=== PATIENT | female | born 1980 | race African-American/Black ===

== ENCOUNTER 2017-10-31 17:08 | Emergency (ER) | payer MEDICAID ==
[~2017-10-31] VITALS: Ht 162.6 cm; Wt 65.8 kg
[~2017-10-31 17:08] MED LIST: ALBUTEROL SULF8.5 GM INH; CIPROFLOXACIN500 M2 ORAL; NKM; ONDANSETRON ODT4 MG ORAL; ZOFRAN4 MG ORAL
[2017-10-31 17:21] VITALS: BP 116/77
--- NOTE | 2017-10-31 17:42 | Emergency Room Report ---
History of Present Illness General Chief Complaint: Upper Extremity Injury Source: Patient Present Illness HPI 29-year-old female presents to ER for status post fall on right arm. Patient states she was walking and tripped onto the curb. Patient states she landed onto her right forearm. Denies FOOSH. Patient complains of pain in right elbow and shoulder. Patient states he feels numbness and tingling in her third and fourth digits of her right hand. Patient denies use medications for relief of pain. Patient denies dizziness, syncope, LOC, Allergies: Coded Allergies: IBUPROFEN (Verified Allergy, Unknown, 09/15/15) Patient History Past Medical History: see triage record Pertinent Family History: none Last Menstrual Period: 10/31/2017 Now: No Immunizations: UTD Reviewed Nursing Documentation: PMH: Agreed, PSxH: Agreed Nursing Documentation-PMH Past Medical History: No Stated History Review of Systems All Other Systems: negative except mentioned in HPI Physical Exam Vital Signs Date Time Temp Pulse Resp B/P (MAP) Pulse Ox O2 Delivery O2 Flow Rate FiO2 10/31/17 17:14 97.7 79 16 116/77 100 Room Air Sp02 EP Interpretation: reviewed, normal General Appearance: alert, GCS 15, non-toxic, mild distress Head: normocephalic, atraumatic Eyes: bilateral eye normal inspection, bilateral eye PERRL ENT: hearing grossly normal, normal pharynx, no angioedema, normal voice, uvula midline Neck: full range of motion, supple/symm/no masses Respiratory: chest non-tender, lungs clear, normal breath sounds, no respiratory distress, speaking full sentences Cardiovascular #1: regular rate, rhythm, no edema Cardiovascular #2: 2+ radial (R), 2+ radial (L) Musculoskeletal: back normal, digits/nails normal, gait/station normal, decreased range of motion - right shoulder and right elbow secondary to pain, pain with full extension of elbow, swelling - mild swelling noted over right elbow, other - NVI, no snuffbox tenderness, tender - TTP over posterior right elbow. Neurologic: alert, oriented x3, responsive, motor strength/tone normal, sensory intact, speech normal Psychiatric: mood/affect normal Skin: normal color, no rash, warm/dry, well hydrated, other - no ecchymosis, no bleeding, no abrasions Lymphatic: no adenopathy Medical Decision Making PA Attestation Dr. Arce is my supervising Physician whom patient management has been discussed with. Diagnostic Impression: Primary Impression: Injury of right upper extremity ER Course Pt. presents to the ED c/o right arm pain. Ddx considered but are not limited to fracture, sprain, strain, contusion, cellulitis, DVT. Vital signs: are WNL, pt. is afebrile ORDERS: An X-ray of the right elbow was ordered, results show no acute fracture, per the preliminary report. An X-ray of the right shoulder was ordered, results show no acute fracture, per the preliminary report. ED INTERVENTIONS: Acetaminophen provided in ED. Sling cast was applied to right arm in ER. The affected arm was checked afterwards by me showing good alignment and support with distal neurovascular functioning intact. DISCHARGE: -Rx provided for Tylenol for pain symptoms. At this time pt. is stable for d/c to home. Will provide printed patient care instructions, and any necessary prescriptions. Patient instructed to follow with primary care provider in 3 - 5 days and to request further orthopedic follow-up. Care plan and follow up instructions have been discussed with the patient prior to discharge. Take medications as directed. Patient questions asked and answered. ER precautions given, patient instructed to return to ER immediately for any new or worsening of symptoms. Other X-Ray Diagnostic Results Other X-Ray Diagnostic Results #1: X-Ray ordered: Right elbow # of Views/Limited Vs Complete: 3 View Indication: Pain EP Interpretation: Yes PA Xray: Interpretation reviewed, by supervising MD, and agrees with findings. Interpretation: no dislocation, no soft tissue swelling, no fractures Impression: No acute disease PRESTON ScribAlan Sevilla PA-C Other X-Ray Diagnostic Results #2: X-Ray ordered: Right shoulder # of Views/Limited Vs Complete: 2 View Indication: Pain EP Interpretation: Yes PA Xray: Interpretation reviewed, by supervising MD, and agrees with findings. Interpretation: no dislocation, no soft tissue swelling, no fractures Impression: No acute disease PRESTON ScribAlan Sevilla PA-C Last Vital Signs Date Time Temp Pulse Resp B/P (MAP) Pulse Ox O2 Delivery O2 Flow Rate FiO2 10/31/17 17:21 97.7 70 16 116/77 100 Room Air Disposition: HOME, SELF-CARE Condition: Stable Scripts Acetaminophen* (TYLENOL EXTRA STRENGTH*) 500 Mg Tablet 500 MG ORAL Q8H Y for Prn Headache/Temp > 101, #30 TAB 0 Refills Prov: Tesfaye Sevilla 10/31/17 Patient Instructions: CONTUSION, Upper Extremity Additional Instructions: Followup with primary care provider in 3 -5 days and discuss further treatment and possible referral to ortho at that time. Wear sling to protect arm. Move arm as tolerated to increase range of motion and prevent stiffness. Take medications as directed. Patient questions asked and answered. ER precautions given, patient instructed to return to ER immediately for any new or worsening of symptoms. Tesfaye Sevilla Oct 31, 2017 17:42
[2017-10-31] MEDS ORDERED: TYLENOL EXTRA500 MG ORAL (18:09)
[2017-10-31 18:14] VITALS: BP 116/77
--- NOTE | 2017-11-01 11:38 | Diagnostic Imaging Report ---
Indication: Shoulder pain status post fall Technique: 2 views of the right shoulder Comparison: Findings: No acute fractures. No dislocations. The joint spaces are preserved Impression: Negative
--- NOTE | 2017-11-01 12:12 | Diagnostic Imaging Report ---
Indications:Pain, status post fall Technique: Three or 4 views of the ] elbow Comparison: None Findings: There is elevation of the anterior and posterior fat pads, consistent with joint effusion. No definite fracture demonstrated. No dislocation. Joint spaces are preserved. Impression: Positive joint effusion, raising concern for occult fracture. Recommend follow-up imaging at 7-10 days. Findings discussed by phone with Dr. Arce at the time of interpretation
== END 2017-10-31 18:19 | disposition home or self-care (01) ==
LOC: EMR 17:40
DX: S59.901A Unspecified injury of right elbow, initial encounter (principal); S49.91XA Unspecified injury of right shoulder and upper arm, initial encounter; W01.0XXA Fall on same level from slipping, tripping and stumbling without subsequent striking against object, initial encounter; Y93.01 Activity, walking, marching and hiking; Y92.480 Sidewalk as the place of occurrence of the external cause; Z88.6 Allergy status to analgesic agent
CPT/HCPCS: 99284

== ENCOUNTER 2018-07-24 14:56 | Emergency (ER) | payer MEDICAID ==
[~2018-07-24] VITALS: Ht 160 cm; Wt 7.3 kg
[~2018-07-24 14:56] MED LIST changes: +TYLENOL EXTRA500 MG ORAL
[2018-07-24] MEDS ORDERED: Dextrose 5%/Lactated Ringer's 1,000 ML IV SCH (15:45)
[2018-07-24] MEDS ORDERED: Haloperidol Lactate 5 MG in D5W 55 ML IVPB ONE (15:45)
[2018-07-24] MEDS ORDERED: Lidocaine 2% Visc 15ml soln ORAL ONE (15:45)
[2018-07-24 15:51] LABS: APPEARANCE,URINE CLEAR; BILIRUBIN, URINE NEGATIVE (NEGATIVE); GLUCOSE, URINE (UA) NEGATIVE (NEGATIVE); KETONES,URINE 2+ (NEGATIVE); LEUKOCYTE ESTERASE ,URINE 1+ (NEGATIVE); NITRITE,URINE NEGATIVE (NEGATIVE); PH,URINE 6 (4.5-8.0); PROTEIN,URINE 1+ (NEGATIVE); UROBILINOGEN,URINE NORMAL MG/DL (0.0-1.0)
--- NOTE | 2018-07-24 16:04 | Emergency Room Report ---
History of Present Illness General Chief Complaint: Vomiting Source: Patient Present Illness HPI Patient is a 38-year-old female who presented after increased abdominal discomfort nausea and vomiting. The patient reports having increased sore throat. She reports having the minimal cough. She reports having generalized abdominal pain. She reports having pain to her throat predominate the left side. She denied any fever. Allergies: Coded Allergies: IBUPROFEN (Verified Allergy, Unknown, 09/15/15) Patient History Last Menstrual Period: 07/2018 Reviewed Nursing Documentation: PMH: Agreed; PSxH: Agreed Nursing Documentation-PMH Past Medical History: No Stated History Review of Systems All Other Systems: negative except mentioned in HPI Physical Exam Vital Signs Date Time Temp Pulse Resp B/P (MAP) Pulse Ox O2 Delivery O2 Flow Rate FiO2 07/24/18 15:23 98.1 85 16 127/74 95 Room Air 98.1 Sp02 EP Interpretation: reviewed, normal General Appearance: normal inspection, well appearing, no apparent distress, alert, GCS 15 Head: atraumatic ENT: normal ENT inspection, hearing grossly normal, normal voice Neck: normal inspection, full range of motion, supple, no bony tend Respiratory: normal inspection, lungs clear, normal breath sounds, no respiratory distress, no retraction, no wheezing Cardiovascular #1: regular rate, rhythm, no edema Gastrointestinal: normal inspection, normal bowel sounds, non tender, soft, no guarding, no hernia Genitourinary: no CVA tenderness Musculoskeletal: normal inspection, back normal, normal range of motion Neurologic: normal inspection, alert, responsive, speech normal Psychiatric: normal inspection, judgement/insight normal, mood/affect normal Skin: normal inspection, normal color, no rash Medical Decision Making ER Course Patient presented for abdominal pain. Differential diagnoses included ischemic bowel, appendicitis, perforated viscus, abdominal aortic aneurysm, inferior myocardial infarction, viral gastroenteritis Last Vital Signs Date Time Temp Pulse Resp B/P (MAP) Pulse Ox O2 Delivery O2 Flow Rate FiO2 07/24/18 15:23 98.1 85 16 127/74 95 Room Air 98.1 Carlos James MD Jul 24, 2018 16:04
[2018-07-24 16:06] LABS: COLOR,URINE YELLOW
[2018-07-24 16:08] VITALS: BP 127/74
--- NOTE | 2018-07-24 16:22 | Diagnostic Imaging Report ---
Indication: Dyspnea Comparison: 08/10/2016 A single view chest radiograph was obtained. Findings: Cardiomediastinal appearance is within normal limits for age. The lungs are clear. Pulmonary vascularity is appropriate. The diaphragmatic contour is smooth and costophrenic angles are sharp. No pleural effusions are identified. The bones are unremarkable. Impression: No acute findings
[2018-07-24 16:25] LABS: HEMATOCRIT 40.1 % (37.0-47.0); HEMOGLOBIN 13.4 G/DL (12.0-16.0); MEAN CORPUSCULAR VOLUME 86 FL (80-99); PLATELET COUNT 289 K/UL (150-450); RED BLOOD COUNT 4.68 M/UL (4.20-5.40); RED CELL DISTRIBUTION WIDTH 11.2 % (11.6-14.8); WHITE BLOOD COUNT 7.2 K/UL (4.8-10.8)
[2018-07-24 16:39] LABS: ALANINE AMINOTRANSFERASE 10 U/L (12-78); ALBUMIN 3.8 G/DL (3.4-5.0); ALBUMIN/GLOBULIN RATIO 0.8 (1.0-2.7); ALKALINE PHOSPHATASE 70 U/L (46-116); ANION GAP 12 mmol/L (5-15); ASPARTATE AMINO TRANSFERASE 15 U/L (15-37); BILIRUBIN,TOTAL 0.6 MG/DL (0.2-1.0); BLOOD UREA NITROGEN 16 mg/dL (7-18); CARBON DIOXIDE 23 MMOL/L (21-32); CHLORIDE 105 MMOL/L (98-107); CREATININE 0.9 MG/DL (0.55-1.30); POTASSIUM 3.6 MMOL/L (3.5-5.1); SODIUM 140 MMOL/L (136-145)
[2018-07-24 17:39] VITALS: BP 125/81
[2018-07-24] MEDS ORDERED: Isovue-300 100ml vial INJ PRN (17:45)
[2018-07-24] MEDS ORDERED: ZOFRAN4 MG ORAL (20:01)
[2018-07-24] MEDS ORDERED: DICYCLOMINE HCL10 MG PO (20:01)
[2018-07-24 20:06] VITALS: BP 127/84
[2018-07-24 20:07] VITALS: BP 127/84
--- NOTE | 2018-07-25 09:36 | Diagnostic Imaging Report ---
Clinical Indication: Abdominal pain Technique: No oral contrast utilized, per emergency room physician request IV administration nonionic contrast. Venous phase spiral acquisition obtained through the abdomen and pelvis. Multiplanar reconstructions were generated. Total dose length product 775.75 mGycm. CTDIvol(s) 15.91 mGy. Dose reduction achieved using automated exposure control Comparison: 02/22/2012 Findings: What is probably a normal appendix is demonstrated, best appreciated on the coronal reconstructed images.. A few small bowel loops are fluid-filled and are mildly prominent in caliber. No free or loculated intraperitoneal gas or fluid. No evidence of colonic diverticulosis or diverticulitis. The distal esophagus demonstrates a small sliding-type hiatal hernia. The remainder of the stomach is unremarkable. The duodenum is unremarkable. The liver, gallbladder, bile ducts, pancreas, adrenals, left kidney are unremarkable. Right kidney demonstrates a lower pole subcentimeter low-attenuation lesion which is too small to characterize. No retroperitoneal or mesenteric mass or adenopathy. No pelvic mass or adenopathy. Uterus and ovaries are unremarkable. The included lung bases are clear. The bones are unremarkable. When compared to prior exam, the hiatal hernia and prominent small bowel loops are a new finding. Impression: Nonspecific mildly prominent fluid-filled small bowel loops, in the appropriate clinical setting could indicate enteritis changes No acute process otherwise Small sliding-type hiatal hernia This agrees with the preliminary interpretation provided overnight by Dr. Oleary The CT scanner at [facility] is accredited by the [employer] and the scans are performed using protocols designed to limit radiation exposure to as low as reasonably achievable to attain images of sufficient resolution adequate for diagnostic evaluation.
== END 2018-07-24 20:07 | disposition home or self-care (01) ==
LOC: EMR 15:40
DX: R10.9 Unspecified abdominal pain (principal); J02.9 Acute pharyngitis, unspecified; R11.2 Nausea with vomiting, unspecified; Z88.6 Allergy status to analgesic agent
CPT/HCPCS: 36415; 71045; 74177; 80053; 80307; 81003; 81025; 85007; 85025; 96365; 96366; 96375; 99284; J1630; J2405; Q9967; S0028

== ENCOUNTER 2018-12-30 23:35 | Emergency (ER) | payer MEDICAID ==
[~2018-12-30] VITALS: Ht 160 cm; Wt 65.8 kg
[~2018-12-30 23:35] MED LIST changes: +DICYCLOMINE HCL10 MG PO
--- NOTE | 2018-12-30 23:47 | NUR ---
ED Nurse Note: PT CAME TO ED FROM HOME C/O R MIDDLE FINGER, RING FINGER, AND LITTLE FNGER PAIN DUE TO ACCIDENTLY CLOSING THE DOORS ON HER FINGERS X 2HORUS AGO. PER PT PAIN 07/19
[2018-12-30 23:48] VITALS: BP 107/69
--- NOTE | 2018-12-30 23:48 | NUR ---
ED Nurse Note: SKIN INTACT OF RIGHT FINGERS. PT SHOWS DIFFICULTY MOVING RIGHT FINGERS. NO VISIBLE BONE DISLOGEMENT
[2018-12-31] MEDS ORDERED: HYDROcodone/Acetamin 5/325 tab ORAL ONE
--- NOTE | 2018-12-31 | Emergency Room Report ---
History of Present Illness General Chief Complaint: Upper Extremity Injury Source: Patient Present Illness HPI Is a 38-year-old female who is right-hand dominant. She presents with chief complaint of right fingers pain. She got her right third and fourth finger caught in between the pain no of the garage door. He was a manual one was she pulled down and her finger got caught. Complaining of 10 out of 10 pain. Worse with movement. Better with rest. No other complaint. No other injury. Occurred just prior to arrival. Allergies: Coded Allergies: IBUPROFEN (Verified Allergy, Unknown, 09/15/15) Uncoded Allergies: POLLEN (Allergy, Unknown, 12/30/18) Patient History Past Medical History: see triage record, old chart reviewed Past Surgical History: other Pertinent Family History: none Social History: Denies: smoking Last Menstrual Period: Dec 23 2018 Now: No Immunizations: other Reviewed Nursing Documentation: PMH: Agreed; PSxH: Agreed Nursing Documentation-PMH Past Medical History: No Stated History Review of Systems Eye: Denies: eye pain, blurred vision ENT: Denies: ear pain, nose congestion, throat swelling Respiratory: Denies: cough, shortness of breath Cardiovascular: Denies: chest pain, palpitations Gastrointestinal: Denies: abdominal pain, diarrhea, nausea, vomiting Musculoskeletal: Reports: joint pain; Denies: back pain Skin: Denies: rash Neurological: Denies: headache, numbness Endocrine: Denies: increased thirst, increased urine Hematologic/Lymphatic: Denies: easy bruising All Other Systems: negative except mentioned in HPI Physical Exam Vital Signs Date Time Temp Pulse Resp B/P (MAP) Pulse Ox O2 Delivery O2 Flow Rate FiO2 12/30/18 23:41 97.9 73 20 107/69 98 Room Air Sp02 EP Interpretation: reviewed, normal General Appearance: well appearing, no apparent distress, alert Head: normocephalic, atraumatic Eyes: bilateral eye PERRL, bilateral eye EOMI ENT: hearing grossly normal, normal pharynx Neck: full range of motion, supple, no meningismus Respiratory: chest non-tender, lungs clear, normal breath sounds Cardiovascular #1: regular rate, rhythm, no murmur Gastrointestinal: normal bowel sounds, non tender, no mass, no organomegaly, no bruit, non-distended Musculoskeletal: back normal, gait/station normal, normal range of motion, other - Right hand: Her third and fourth finger over the middle phalanx has edema and tenderness. Full range of motion of the MCP, PIP, DIP joint. Psychiatric: mood/affect normal Skin: warm/dry Procedures Splinting Splinting : Consent: Verbal Location: Right fingers Pre-Made Type: metal Pre-Proc Neuro Vasc Exam: normal Post-Proc Neuro Vasc Exam: normal Patient Tolerated: Well Complications: None Medical Decision Making Diagnostic Impression: Primary Impression: Contusion, fingers Qualified Codes: S60.00XA - Contusion of unspecified finger without damage to nail, initial encounter ER Course She presents with soft tissue injury secondary to crush injury. No fracture dislocation. We'll discharge home. Other X-Ray Diagnostic Results Other X-Ray Diagnostic Results : X-Ray ordered: Finger x-rays # of Views/Limited Vs Complete: 3 View Indication: Pain EP Interpretation: Yes Interpretation: no dislocation, no soft tissue swelling, no fractures Impression: No acute disease Electronically Signed by: Yang Fowler MD Last Vital Signs Date Time Temp Pulse Resp B/P (MAP) Pulse Ox O2 Delivery O2 Flow Rate FiO2 12/30/18 23:48 97.9 73 20 107/69 98 Room Air Status: improved Disposition: HOME, SELF-CARE Condition: Stable Scripts Hydrocodone/Acetaminophen 5-325* (HYDROCODONE/ACETAMINOPHEN 5-325*) 1 Each Tablet 1 TAB ORAL Q6H PRN for For Pain, #15 TAB 0 Refills Prov: Yang Fowler MD 12/31/18 Additional Instructions: Ice pack to the area. Follow-up with your doctor in 7 days. Return if worse. Yang Fowler MD Dec 31, 2018 00:00
[2018-12-31] MEDS ORDERED: Acetaminophen 500mg (ES) tab ORAL ONE ×2 (00:01)
--- NOTE | 2018-12-31 00:02 | NUR ---
ED Nurse Note: INFORMED ERMD PT DROVE HERSELF TO ED, DAUGHTER ACCOMPANING PT CANT DRIVE. PER ERMBuffy BELL CANCELLED. WILL ADMIN TYLENOL PER VINCENTD
--- NOTE | 2018-12-31 00:24 | Diagnostic Imaging Report ---
EXAM: XR Right Finger(s), 2 or More Views CLINICAL HISTORY: TRAUMA TECHNIQUE: Frontal, lateral and oblique views of finger(s) of the right hand. COMPARISON: No relevant prior studies available. FINDINGS: Bones/joints: Unremarkable. No acute fracture. No dislocation. Soft tissues: Unremarkable. No radiopaque foreign body. A couple of subjacent small radiopaque/metallic density foreign bodies are seen along the nail of the second digit. IMPRESSION: No acute or healing fracture or malalignment.
--- NOTE | 2018-12-31 00:29 | NUR ---
ED Nurse Note: SUZAN WATERS AT BEDSIDE APPLYING FINGER SPLINT PER ERMD ORDER
[2018-12-31] MEDS ORDERED: HYDROCODON-ACE1 EA15 ORAL (00:42)
[2018-12-31 00:45] VITALS: BP 107/69
--- NOTE | 2018-12-31 00:46 | NUR ---
ER DISCHARGE NOTE: Patient is cleared to be discharged per ERMD, pt is aox4, on room air, with stable vital signs. pt was given dc and prescription instructions, pt was able to verbalize understanding, pt id band removed. pt is able to ambulate with steady gait. pt took all belongings.
== END 2018-12-31 00:45 | disposition home or self-care (01) ==
LOC: EMR 23:57
DX: S60.031A Contusion of right middle finger without damage to nail, initial encounter (principal); S60.041A Contusion of right ring finger without damage to nail, initial encounter; W23.0XXA Caught, crushed, jammed, or pinched between moving objects, initial encounter; Y92.89 Other specified places as the place of occurrence of the external cause; Z88.6 Allergy status to analgesic agent
CPT/HCPCS: 29130; 99283

== ENCOUNTER 2019-08-06 10:40 | Emergency (ER) | payer MEDICAID ==
[~2019-08-06] VITALS: Ht 160 cm; Wt 63.5 kg
[~2019-08-06 10:40] MED LIST changes: +HYDROCODON-ACE1 EA15 ORAL
--- NOTE | 2019-08-06 10:41 | NUR ---
ED Nurse Note: pt not found in waiting area.
[2019-08-06] MEDS ORDERED: NKM (10:45)
[2019-08-06 11:00] VITALS: BP 133/87
--- NOTE | 2019-08-06 11:02 | NUR ---
ED Nurse Note:pt. came with flu like symptoms no fever and lower back pain no injury
--- NOTE | 2019-08-06 11:11 | Emergency Room Report ---
History of Present Illness General Chief Complaint: Flu Like Symptoms Source: Patient Present Illness HPI Patient presents with 2 days of upper respiratory illness. She complains of sore throat, ear pain, headache muscle aches and cough. She is exposed to secondhand smoke. The cough is nonproductive. She rates the pain in her throat years and had 9/10 at this time. Throbbing aching and sharp in her throat worse when she swallows. She has no neck stiffness. She feels feverish. No documented temperature. No nausea, vomiting or diarrhea. She has occasionally heard herself wheezing. In the past she is used an albuterol inhaler but does not have one at this time. 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 Nursing Documentation: PMH: Agreed; PSxH: Agreed Nursing Documentation-PMH Past Medical History: No Stated History Review of Systems All Other Systems: negative except mentioned in HPI Physical Exam Vital Signs Date Time Temp Pulse Resp B/P (MAP) Pulse Ox O2 Delivery O2 Flow Rate FiO2 08/06/19 10:43 97.9 83 18 133/87 (102) 99 Room Air Sp02 EP Interpretation: reviewed, normal General Appearance: well appearing, no apparent distress, GCS 15 Head: normocephalic Eyes: bilateral eye normal inspection, bilateral eye PERRL ENT: no angioedema, normal voice, moist mucus membranes, pharyngeal erythema, other - Minimal erythema bilateral TMs Neck: full range of motion, no meningismus Respiratory: lungs clear, normal breath sounds Cardiovascular #1: regular rate, rhythm Cardiovascular #2: 2+ radial (R) Gastrointestinal: normal inspection Genitourinary: no CVA tenderness Musculoskeletal: gait/station normal Neurologic: alert, oriented x3, grossly normal Psychiatric: mood/affect normal Skin: normal color, no rash, warm/dry Medical Decision Making Diagnostic Impression: Primary Impression: Otitis media Qualified Codes: H66.90 - Otitis media, unspecified, unspecified ear Additional Impression: URI (upper respiratory infection) Qualified Codes: J06.9 - Acute upper respiratory infection, unspecified ER Course Patient presents with 2 days of upper respiratory symptoms. Based on exam she appears to have otitis media bilaterally. Antibiotics are indicated. In addition due to the severity of pain the patient will be treated with analgesia here. Diagnosis is clinical. Patient stable for outpatient observation and treatment. Last Vital Signs Date Time Temp Pulse Resp B/P (MAP) Pulse Ox O2 Delivery O2 Flow Rate FiO2 08/06/19 11:44 97.9 08/06/19 11:44 83 18 133/87 99 Room Air Status: improved Disposition: HOME, SELF-CARE Condition: Improved Scripts Amoxicillin* (AMOXIL*) 500 Mg Capsule 500 MG ORAL THREE TIMES A DAY, #21 CAP Prov: Sandro Gomez MD 08/06/19 Guaifenesin/Codeine Phos* (ROBITUSSIN AC*) 118 Ml Liquid 5 ML ORAL Q6H PRN for For Cough, #118 ML 0 Refills Prov: Sandro Gomez MD 08/06/19 Albuterol Sulfate* (ALBUTEROL SULFATE MDI*) 8.5 Gm Hfa.aer.ad 2 PUFF INH Q6H, #1 EA 0 Refills Prov: Sandro Gomez MD 08/06/19 Sandro Gomez MD Aug 06, 2019 11:11
[2019-08-06] MEDS ORDERED: GUAIFENESIN-CO118 M1 ORAL (11:14)
[2019-08-06] MEDS ORDERED: AMOXICILLIN500 MG ORAL (11:14)
[2019-08-06] MEDS ORDERED: ALBUTEROL SULF8.5 GM INH (11:14)
[2019-08-06] MEDS ORDERED: Tylenol #3 tab (300mg/30mg) ORAL ONE (11:15)
--- NOTE | 2019-08-06 11:30 | NUR ---
ER DISCHARGE NOTE: Patient is cleared to be discharged per ERMD, pt is aox4, on room air, with stable vital signs. pt was given dc and prescription instructions, pt was able to verbalize understanding, pt is able to ambulate with steady gait. pt took all belongings.
[2019-08-06 11:44] VITALS: BP 133/87
== END 2019-08-06 11:35 | disposition home or self-care (01) ==
LOC: EMR 11:16
DX: H66.90 Otitis media, unspecified, unspecified ear (principal); J06.9 Acute upper respiratory infection, unspecified; Z88.8 Allergy status to other drugs, medicaments and biological substances; Z91.048 Other nonmedicinal substance allergy status
CPT/HCPCS: 99282

== ENCOUNTER 2019-08-10 19:48 | Emergency (ER) | payer MEDICAID ==
[~2019-08-10] VITALS: Ht 160 cm; Wt 63.5 kg
[~2019-08-10 19:48] MED LIST changes: +AMOXICILLIN500 MG ORAL; +GUAIFENESIN-CO118 M1 ORAL
--- NOTE | 2019-08-10 20:00 | NUR ---
ED Nurse Note: Recieved pt from home, pt here with c/o needing work note for more time and chest congestion with intermittent pain, pt was seen here and on antibiotic treatment, in third day, pt denies fevers, nausea or vomiting or any other discomforts.
[2019-08-10 20:40] VITALS: BP 116/76
--- NOTE | 2019-08-10 20:40 | NUR ---
ER DISCHARGE NOTE: Patient is cleared to be discharged per ERMD, pt is aox4, on room air, with stable vital signs. pt was given dc and prescription instructions, pt was able to verbalize understanding, pt id band removed without complications. pt is able to ambulate with steady gait. pt took all belongings.
--- NOTE | 2019-08-10 21:50 | Emergency Room Report ---
History of Present Illness General Chief Complaint: Pain Source: Patient Present Illness Allergies: Coded Allergies: IBUPROFEN (Verified Allergy, Unknown, 09/15/15) Uncoded Allergies: POLLEN (Allergy, Unknown, 12/30/18) Patient History Last Menstrual Period: 08/10/19 Now: No Nursing Documentation-[facility] Past Medical History: No Stated History Physical Exam Vital Signs Date Time Temp Pulse Resp B/P (MAP) Pulse Ox O2 Delivery O2 Flow Rate FiO2 08/10/19 19:51 98.4 86 14 116/76 (89) 98 Room Air Medical Decision Making Diagnostic Impression: Primary Impression: URI (upper respiratory infection) Last Vital Signs Date Time Temp Pulse Resp B/P (MAP) Pulse Ox O2 Delivery O2 Flow Rate FiO2 08/10/19 20:40 98.4 14 116/76 98 Room Air 08/10/19 19:51 86 Status: improved Disposition: HOME, SELF-CARE Condition: Stable Referrals: NON PHYSICIAN (PCP) Enrico Dixon [facility] Departure Forms: Return to Work Return to Work Date: Aug 13, 2019 Work Restrictions: None Patient Instructions: Upper Respiratory Infection, Adult, [id number] Additional Instructions: continue your medications as directed, f/u with PMD Lisandro Leonard MD Aug 10, 2019 21:50
--- NOTE | 2019-08-13 16:04 | Emergency Room Report ---
History of Present Illness General Chief Complaint: Pain Source: Patient Present Illness HPI 39-year-old female presents ED for evaluation. Patient states she is here for throat, cough, congestion. Was seen here on 08/06. Was noted to have pharyngitis and prescribed antibiotics. States she is been compliant with the medication but states her symptom proving. Pain is dull, 7 out of 10, nonradiating. Denies fevers or chills. Cough is productive with yellowish phlegm. Vaccinations up-to-date. No other aggravating relieving factors. Denies any other signs and symptoms Allergies: Coded Allergies: IBUPROFEN (Verified Allergy, Unknown, 09/15/15) Uncoded Allergies: POLLEN (Allergy, Unknown, 12/30/18) Patient History Past Medical History: none Past Surgical History: none Pertinent Family History: none Social History: Denies: smoking, alcohol use, drug use Last Menstrual Period: 08/10/19 Now: No Immunizations: UTD Reviewed Nursing Documentation: PMH: Agreed; PSxH: Agreed Nursing Documentation-PMH Past Medical History: No Stated History Review of Systems All Other Systems: negative except mentioned in HPI Physical Exam Vital Signs Date Time Temp Pulse Resp B/P (MAP) Pulse Ox O2 Delivery O2 Flow Rate FiO2 08/10/19 19:51 98.4 86 14 116/76 (89) 98 Room Air Sp02 EP Interpretation: reviewed, normal General Appearance: no apparent distress, alert, GCS 15, non-toxic Head: normocephalic, atraumatic Eyes: bilateral eye normal inspection, bilateral eye PERRL ENT: hearing grossly normal, normal pharynx, no angioedema, normal voice Neck: full range of motion, supple/symm/no masses Respiratory: chest non-tender, lungs clear, normal breath sounds, speaking full sentences Cardiovascular #1: regular rate, rhythm, no edema Cardiovascular #2: 2+ carotid (R), 2+ carotid (L), 2+ radial (R), 2+ radial (L) , 2+ dorsalis pedis (R), 2+ dorsalis pedis (L) Gastrointestinal: normal bowel sounds, non tender, soft, non-distended, no guarding, no rebound Rectal: deferred Genitourinary: normal inspection, no CVA tenderness Musculoskeletal: back normal, gait/station normal, normal range of motion, non- tender Neurologic: alert, oriented x3, responsive, motor strength/tone normal, sensory intact, speech normal Psychiatric: judgement/insight normal, memory normal, mood/affect normal, no suicidal/homicidal ideation Reflexes: 3+ bicep (R), 3+ bicep (L), 3+ tricep (R), 3+ tricep (L), 3+ knee (R) , 3+ knee (L) Lymphatic: no adenopathy Medical Decision Making Diagnostic Impression: Primary Impression: URI (upper respiratory infection) Qualified Codes: J06.9 - Acute upper respiratory infection, unspecified ER Course Hospital Course 39 yo F presents to ED c/o cough, sore throat. currently on antibiotics. Differential diagnoses include: URI, pharyngitis, otitis media, asthma Clinical course Patient placed on stretcher. After initial history, physical exam reveals a female in no acute distress. Bilateral TM unremarkable. No pharyngeal erythema. No tonsillar exudates. No lymphadenopathy. lungs clear. abdomen soft. Discussed findings with the patient. I explained that her buttocks take more than 3 days to start showing effect. I explained the urgency to compliance of the antibiotics and to complete the prescription as directed. we'll provide referrals Diagnosis - URI Stable and discharged home. Instructed to followup with PMD. Return to ED if symptoms recur or worsen Last Vital Signs Date Time Temp Pulse Resp B/P (MAP) Pulse Ox O2 Delivery O2 Flow Rate FiO2 08/10/19 20:40 98.4 14 116/76 98 Room Air 08/10/19 19:51 86 Status: improved Disposition: HOME, SELF-CARE Condition: Stable Referrals: NON PHYSICIAN (PCP) Enrico Dixon [facility] Departure Forms: Return to Work Return to Work Date: Aug 13, 2019 Work Restrictions: None Patient Instructions: Upper Respiratory Infection, Adult, [id number] Additional Instructions: continue your medications as directed, f/u with PMD Lisandro Leonard MD Aug 13, 2019 16:04
== END 2019-08-10 20:40 | disposition home or self-care (01) ==
LOC: EMR 20:21
DX: J06.9 Acute upper respiratory infection, unspecified (principal)
CPT/HCPCS: 99281

== ENCOUNTER 2020-04-09 18:56 | Emergency (ER) | payer MEDICAID ==
[~2020-04-09] VITALS: Ht 162.6 cm; Wt 77.1 kg
[2020-04-09 19:10] VITALS: BP 123/74
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
--- NOTE | 2020-04-09 19:30 | NUR ---
ED Nurse Note: Pt is actively vomiting in ED. ERPA aware.
[2020-04-09] MEDS ORDERED: Promethazine Plain 6.25mg/5ml ORAL PRN (20:00)
[2020-04-09] MEDS ORDERED: Promethazine 25mg tab ORAL ONE (20:03)
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
--- NOTE | 2020-04-09 20:45 | NUR ---
ED Nurse Note: Pt states she is feeling better, has not had episode of vomiting since medication was given.
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
--- NOTE | 2020-04-09 21:00 | NUR ---
ED Nurse Note: machines technician applied splint and instructed pt how to use crutches.
[2020-04-09 21:08] LABS: BASOPHILS % (AUTO) 2.1 % (0.0-2.0); EOSINOPHILS % (AUTO) 0.1 % (0.0-3.0); HEMOGLOBIN 13.1 G/DL (12.0-16.0); LYMPHOCYTES % (AUTO) 11.6 % (20.0-45.0); MEAN CORPUSCULAR VOLUME 88 FL (80-99); MONOCYTES % (AUTO) 5.9 % (1.0-10.0); NEUTROPHILS % (AUTO) 80.3 % (45.0-75.0); PLATELET COUNT 303 K/UL (150-450); RED BLOOD COUNT 4.67 M/UL (4.20-5.40); RED CELL DISTRIBUTION WIDTH 13.2 % (11.6-14.8); WHITE BLOOD COUNT 11.3 K/UL (4.8-10.8)
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
[2020-04-09] MEDS ORDERED: TYLENOL EXTRA500 MG ORAL (21:37)
[2020-04-09] MEDS ORDERED: ACETAMINOPHEN-1 EAC1 ORAL (21:37)
[2020-04-09] MEDS ORDERED: ROBAXIN-500MG ORAL (21:37)
[2020-04-09] MEDS ORDERED: PHENERGAN25 M1 ORAL (21:37)
[2020-04-09 21:55] VITALS: BP 118/85
--- NOTE | 2020-04-09 21:55 | NUR ---
ER DISCHARGE NOTE: Patient is cleared to be discharged per ERMD, pt is aox4, on room air, with stable vital signs. pt was given dc and prescription instructions, pt was able to verbalize understanding, pt id band and iv site removed without complications. pt is able to ambulate with steady gait. pt took all belongings.
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
--- NOTE | 2020-04-10 12:49 | Diagnostic Imaging Report ---
Indication: Pain, trauma Technique: 3 views of the right ankle Comparison: none Findings: There is a fracture of the fourth metatarsal base, also reported on separate foot radiograph. The other metatarsal fractures reported on that exam are not included in the imaging volume. No ankle fracture demonstrated. No dislocations. The joint spaces are preserved Impression: No acute ankle fracture Metatarsal fracture-please see separate foot radiograph report
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
== END 2020-04-09 21:55 | disposition home or self-care (01) ==
LOC: EMR 20:10
DX: S92.514A Nondisplaced fracture of proximal phalanx of right lesser toe(s), initial encounter for closed fracture (principal); V43.52XA Car driver injured in collision with other type car in traffic accident, initial encounter; Y92.410 Unspecified street and highway as the place of occurrence of the external cause; F12.90 Cannabis use, unspecified, uncomplicated; Z88.6 Allergy status to analgesic agent; R11.2 Nausea with vomiting, unspecified; S93.401A Sprain of unspecified ligament of right ankle, initial encounter
CPT/HCPCS: 29515; 36415; 70450; 72125; 73610; 73630; 81025; 85025; 96360; 99284; J7030; J2405

== ENCOUNTER 2020-09-09 17:19 | Emergency (ER) | payer MEDICAID ==
[~2020-09-09] VITALS: Ht 160 cm; Wt 63.5 kg
[~2020-09-09 17:19] MED LIST changes: +ACETAMINOPHEN-1 EAC1 ORAL; +PHENERGAN25 M1 ORAL; +ROBAXIN-500MG ORAL
--- NOTE | 2020-09-09 17:53 | Emergency Room Report ---
History of Present Illness General Chief Complaint: Pain Source: Patient Present Illness HPI Disclaimer: Please note that this report is being documented using DRAGON technology. This can lead to erroneous entry secondary to incorrect interpretation by the dictating instrument. HPI: 40-year-old female presents for evaluation of multiple complaints. She is complaining of 3 days chest discomfort, shortness of breath, abdominal discomfort, headache. Symptoms have been constant. She reports a dull generalized headache without changes in vision, no eye pain, denies fever or chills. Denies nasal congestion, sore throat or sick contacts. She reports that she feels her chest is tight like she usually has with asthma. Has been using her albuterol inhaler. Denies cough. Also reports left lower quadrant abdominal pain of 3 days duration. Has a history ovarian cyst that was surgically removed. Does not follow-up with [facility] anymore. Denies vaginal bleeding, vaginal discharge, flank pain, nausea, vomiting, diarrhea, dysuria or hematuria. Reports regular marijuana use. Denies tobacco use. PMH: Denies PSH: Ovarian cyst excision Allergies: Ibuprofen Social Hx: THC use Allergies: Coded Allergies: IBUPROFEN (Verified Allergy, Unknown, 09/15/15) Uncoded Allergies: POLLEN (Allergy, Unknown, 12/30/18) COVID-19 Screening Contact w/high risk pt: No Recent Travel to affected area: No Experienced COVID-19 symptoms?: No Nursing Documentation-PMH Hx Asthma: Yes Review of Systems All Other Systems: negative except mentioned in HPI Physical Exam General: Awake and alert, no acute distress HEENT: NC/AT. EOMI. Cardiovascular: RRR. S1 and S2 normal. No murmur appreciated Resp: Normal work of breathing. No cough, wheezing or crackles appreciated Abdomen: Abdomen is soft, nondistended. Obese abdomen. No peritoneal signs. No guarding, no masses. Mild tenderness in the left lower quadrant. Skin: Intact. No abrasions, laceration or rash over the exposed skin MSK: Normal tone and bulk. Moving all extremities. No obvious deformity. Neuro: Awake and alert. Mentating appropriately. Medical Decision Making Diagnostic Impression: Primary Impression: Chest pain ER Course 40-year-old female history of asthma presents for evaluation of chest discomfo rt, headache and abdominal discomfort. Differential includes is not limited to viral syndrome, pneumonia, asthma exacerbation, bronchitis, generalized headache, ACS, arrhythmia, electrolyte abnormality, ovarian cyst, ectopic , UTI among others. EKG is nonischemic shows normal sinus rhythm without abnormalities otherwise. Chest x-ray unremarkable. No infiltrates, no effusions, no pneumothorax. Labs have returned within normal limits including a negative troponin. Patient is breathing comfortably saturating 100% on room air and I appreciate no wheezing or tightness in her chest. Do not believe steroids are indicated the patient has Ventolin at home. Will treat symptomatically for what may be a early viral syndrome. She is getting tested for COVID-19 tomorrow through her physical therapist. Recommended quarantine precautions and follow- up with PMD. She understands and agrees with this treatment plan EKG Diagnostic Results Troponin ordered: Yes When was troponin ordered?: Sep 09, 2020 EKG Time: 17:43 Rate: normal Rhythm: NSR ST Segments: no acute changes Other Impression Sinus rhythm, normal axis, normal intervals, no ST segment changes. Rhythm Strip Diag. Results Rhythm Strip Time: 17:43 EP Interpretation: yes Rate: 60s Rhythm: NSR, no PVC's, no ectopy Chest X-Ray Diagnostic Results Chest X-Ray Diagnostic Results : Chest X-Ray Ordered: Yes # of Views/Limited/Complete: 1 View Indication: Chest Pain EP Interpretation: Yes Interpretation: no consolidation, no effusion, no pneumothorax, no acute cardiopulmonary disease Impression: No acute disease Electronically Signed by: Electronically signed by Dr. Keanu Toro MD Disposition: HOME, SELF-CARE Condition: Stable Scripts Acetaminophen* (TYLENOL EXTRA STRENGTH*) 500 Mg Tablet 500 MG ORAL Q8H PRN for Prn Headache/Temp > 101, #30 TAB 0 Refills Prov: Keanu Toro MD 09/09/20 Keanu Toro MD Sep 09, 2020 17:53
[2020-09-09] MEDS ORDERED: Acetaminophen 500mg (ES) tab ORAL ONE (18:00)
[2020-09-09 18:16] LABS: APPEARANCE,URINE CLEAR; BILIRUBIN, URINE NEGATIVE (NEGATIVE); GLUCOSE, URINE (UA) NEGATIVE (NEGATIVE); KETONES,URINE 1+ (NEGATIVE); LEUKOCYTE ESTERASE ,URINE NEGATIVE (NEGATIVE); NITRITE,URINE NEGATIVE (NEGATIVE); PH,URINE 6.5 (4.5-8.0); PROTEIN,URINE NEGATIVE (NEGATIVE); UROBILINOGEN,URINE 1 MG/DL (0.0-1.0)
[2020-09-09 18:24] LABS: COLOR,URINE YELLOW
[2020-09-09 18:27] LABS: ANION GAP 5 mmol/L (5-15); BASOPHILS % (AUTO) 1.5 % (0.0-2.0); BLOOD UREA NITROGEN 13 mg/dL (7-18); CALCIUM 8.6 MG/DL (8.5-10.1); CARBON DIOXIDE 29 MMOL/L (21-32); CHLORIDE 104 MMOL/L (98-107); EOSINOPHILS % (AUTO) 0.4 % (0.0-3.0); HEMATOCRIT 38.5 % (37.0-47.0); HEMOGLOBIN 12.6 G/DL (12.0-16.0); MEAN CORPUSCULAR VOLUME 85 FL (80-99); MONOCYTES % (AUTO) 13.1 % (1.0-10.0); NEUTROPHILS % (AUTO) 33.1 % (45.0-75.0); PLATELET COUNT 296 K/UL (150-450); POTASSIUM 3.8 MMOL/L (3.5-5.1); RED CELL DISTRIBUTION WIDTH 12.6 % (11.6-14.8); SODIUM 138 MMOL/L (136-145); WHITE BLOOD COUNT 3.9 K/UL (4.8-10.8)
[2020-09-09 18:31] LABS: ALANINE AMINOTRANSFERASE 8 U/L (12-78); ALBUMIN 3.8 G/DL (3.4-5.0); ALBUMIN/GLOBULIN RATIO 0.9 (1.0-2.7); ALKALINE PHOSPHATASE 79 U/L (46-116); ASPARTATE AMINO TRANSFERASE 15 U/L (15-37); BILIRUBIN,TOTAL 0.5 MG/DL (0.2-1.0)
[2020-09-09] MEDS ORDERED: TYLENOL EXTRA500 MG ORAL (18:37)
[2020-09-09 19:00] VITALS: BP 118/70
[2020-09-09 20:05] VITALS: BP 116/80
--- NOTE | 2020-09-10 18:55 | Diagnostic Imaging Report ---
Indication: Chest pain Technique: One view of the chest Comparison: 07/24/2018 Findings: Lungs and pleural spaces are clear. Heart size is normal. No significant change Impression: No acute process
--- NOTE | 2020-09-12 13:02 | Cardiology Report ---
APPROVED REPORT EKG Measurement Heart [id number] <Conclusion> Normal sinus rhythm Normal ECG
== END 2020-09-09 20:05 | disposition home or self-care (01) ==
LOC: EMR 17:59
DX: R07.89 Other chest pain (principal); R51.9 Headache, unspecified; R10.9 Unspecified abdominal pain; J45.909 Unspecified asthma, uncomplicated; Z88.6 Allergy status to analgesic agent
CPT/HCPCS: 36415; 71045; 80053; 81003; 81025; 83690; 84484; 85025; 93005; Z7502; 99284